=== PATIENT | female | born 1985 | race Caucasian/White ===

== ENCOUNTER 2016-12-30 11:34 | Emergency (ER) | payer BC ==
[~2016-12-30] VITALS: Ht 157.5 cm; Wt 131.7 kg
[~2016-12-30 11:34] MED LIST: DICY20TA PO; FLAG500T PO; PREN27TA3 PO; ZOFR8TAB PO
[2016-12-30 11:35] VITALS: BP 142/89
[2016-12-30] MEDS ORDERED: KEFL500C17 PO (12:25)
== END 2016-12-30 12:45 | disposition home or self-care (01) ==
LOC: M ED 12:26
DX: J02.8 Acute pharyngitis due to other specified organisms (principal); G43.909 Migraine, unspecified, not intractable, without status migrainosus

== ENCOUNTER → 2018-01-27 | Outpatient (REF) ==
[2018-01-27 10:54] LABS: RUBELLA IgG QUALITATIVE IMMUNE (IMMUNE)
== END ==
LOC: M LAB 09:32
DX: Z00.00 Encounter for general adult medical examination without abnormal findings (principal)

== ENCOUNTER → 2018-04-01 | Outpatient (CLI) | payer BC ==
[2018-04-01 07:34] LABS: BASO % 0.5 % (0.0-1.0); EOS # 0.2 10^3/uL (0.0-0.50); EOS % 2.4 % (0.0-3.0); HEMATOCRIT 41.6 % (36.0-47.0); IMMATURE GRANULOCYTE % 0.3 % (0-3.0); LYMPH % 31.9 % (24.0-44.0); MEAN CORPUSCULAR HEMOGLOBIN 27.6 pg (27.0-33.0); MEAN CORPUSCULAR HGB CONC 33.7 g/dl (32.0-36.5); MEAN CORPUSCULAR VOLUME 81.9 fl (80.0-96.0); MONO # 0.4 10^3/uL (0.0-0.8); NEUTROPHILS # 3.7 10^3/uL (1.8-7.7); NEUTROPHILS % 58.9 % (36.0-66.0); PLATELET COUNT, AUTOMATED 232 10^3/uL (150-450); RED BLOOD COUNT 5.08 10^6/uL (4.00-5.40); RED CELL DISTRIBUTION WIDTH 12.3 % (11.5-14.5); WHITE BLOOD COUNT 6.2 10^3/uL (4.0-10.0)
[2018-04-01 08:20] LABS: ALBUMIN 3.8 GM/DL (3.2-5.2); ALBUMIN/GLOBULIN RATIO 1.23 (1.00-1.93); ALKALINE PHOSPHATASE 80 U/L (45-117); ALT/SGPT 36 U/L (12-78); ANION GAP 9 MEQ/L (8-16); AST/SGOT 30 U/L (7-37); BILIRUBIN,TOTAL 0.5 MG/DL (0.2-1.0); BLOOD UREA NITROGEN 8 MG/DL (7-18); CALCIUM LEVEL 9.3 MG/DL (8.5-10.1); CARBON DIOXIDE LEVEL 25 MEQ/L (21-32); CHLORIDE LEVEL 106 MEQ/L (98-107); CREATININE FOR GFR 0.69 MG/DL (0.55-1.30); GLOMERULAR FILTRATION RATE > 60.0 (>60); GLUCOSE, FASTING 93 MG/DL (70-100); POTASSIUM SERUM 4.2 MEQ/L (3.5-5.1); SODIUM LEVEL 140 MEQ/L (136-145); TOTAL PROTEIN 6.9 GM/DL (6.4-8.2)
[2018-04-01 15:35] LABS: ESTIMATED AVERAGE GLUCOSE 111 MG/DL (60-110); HEMOGLOBIN A1c 5.5 %
== END ==
LOC: M LAB 06:26
DX: E66.01 Morbid (severe) obesity due to excess calories (principal); R73.01 Impaired fasting glucose; E78.6 Lipoprotein deficiency
CPT/HCPCS: 84443

== ENCOUNTER → 2018-09-09 | Outpatient (CLI) | payer BC ==
[~2018-09-09] MED LIST changes: +KEFL500C17 PO
[2018-09-09 17:18] LABS: BASO % 0.4 % (0.0-1.0); EOS # 0.2 10^3/uL (0.0-0.50); EOS % 2.5 % (0.0-3.0); HEMOGLOBIN 13.6 g/dl (12.0-15.5); LYMPH # 1.6 10^3/uL (1.5-4.5); MEAN CORPUSCULAR HEMOGLOBIN 27.4 pg (27.0-33.0); MEAN CORPUSCULAR VOLUME 80.6 fl (80.0-96.0); MONO # 0.5 10^3/uL (0.0-0.8); MONO % 7.7 % (0.0-5.0); NEUTROPHILS # 4.5 10^3/uL (1.8-7.7); NEUTROPHILS % 66.1 % (36.0-66.0); PLATELET COUNT, AUTOMATED 219 10^3/uL (150-450); RED BLOOD COUNT 4.96 10^6/uL (4.00-5.40); WHITE BLOOD COUNT 6.8 10^3/uL (4.0-10.0)
[2018-09-09 17:42] LABS: ALBUMIN 3.6 GM/DL (3.2-5.2); ALT/SGPT 26 U/L (12-78); BILIRUBIN,TOTAL 0.3 MG/DL (0.2-1.0); BLOOD UREA NITROGEN 12 MG/DL (7-18); C REACTIVE PROTEIN QUANTITATIV 8.98 MG/DL (0.00-0.30); CALCIUM LEVEL 9.8 MG/DL (8.5-10.1); CARBON DIOXIDE LEVEL 28 MEQ/L (21-32); CHLORIDE LEVEL 105 MEQ/L (98-107); CREATININE FOR GFR 0.66 MG/DL (0.55-1.30); GLOMERULAR FILTRATION RATE > 60.0 (>60); GLUCOSE, FASTING 99 MG/DL (70-100); SODIUM LEVEL 139 MEQ/L (136-145); TOTAL PROTEIN 7.1 GM/DL (6.4-8.2)
== END ==
LOC: M LAB 16:28
PROVIDERS: ATTEND Family Medicine
DX: L03.115 Cellulitis of right lower limb (principal)

== ENCOUNTER 2019-10-24 02:44 | Emergency (ER) | payer BC ==
[~2019-10-24] VITALS: Ht 160 cm; Wt 125.0 kg
[~2019-10-24 02:44] MED LIST changes: +ONDA-227 PO; -ZOFR8TAB PO
[2019-10-24] MEDS ORDERED: LEVA1TAB2 PO (02:49)
[2019-10-24] MEDS ORDERED: LIDOCAINE W/EPINEPHRINE 1% 20ML VIAL SC ONE (04:45)
[2019-10-24 05:13] VITALS: BP 124/78
== END 2019-10-24 05:24 | disposition home or self-care (01) ==
LOC: M ED 02:44
DX: N75.0 Cyst of Bartholin's gland (principal); G43.909 Migraine, unspecified, not intractable, without status migrainosus; G89.29 Other chronic pain; F17.200 Nicotine dependence, unspecified, uncomplicated; Z79.899 Other long term (current) drug therapy

== ENCOUNTER → 2020-11-05 | Outpatient (CLI) | payer BC ==
[~2020-11-05] MED LIST changes: +LEVA1TAB2 PO
--- NOTE | 2020-11-05 13:44 | REP ---
INDICATION: LOW BACK PAIN. COMPARISON: None TECHNIQUE: Seven views including flexion and extension bending views FINDINGS: There is a mild levoconvex lumbar curve. The disc spaces are symmetric and relatively well maintained. There is mild T12-L1 disc space narrowing with anterior lipping. Vertebral body height is within normal limits. Flexion and extension bending views show no evidence of instability. There is no evidence of spondylolysis or spondylolisthesis. The pedicles are intact bilaterally. There is partial lumbarization of S1. There is S1 spina bifida occulta. IMPRESSION: Chronic changes as described above. <Electronically signed by Morales Meng > 11/05/20 [id number]
== END ==
LOC: M WUC 11:38
PROVIDERS: ATTEND Family Medicine
DX: M54.5 Low back pain (principal); Q76.0 Spina bifida occulta

== ENCOUNTER 2020-11-14 12:13 | Emergency (ER) | payer BC ==
[~2020-11-14] VITALS: Ht 160 cm; Wt 126.2 kg
[2020-11-14] MEDS ORDERED: PRED10TA2 (12:22)
[2020-11-14] MEDS ORDERED: HYDR-3490 (12:22)
[2020-11-14] MEDS ORDERED: ONDA8TAB8 (12:22)
--- NOTE | 2020-11-14 14:02 | REP ---
INDICATION: CHEST PAIN COMPARISON: None. TECHNIQUE: PA/Lateral FINDINGS: Lungs: Clear, no infiltrate. Heart: Normal in size. Mediastinum: Mediastinal silhouette unremarkable. Pleural angles: Unremarkable.. Bones and soft tissues: Unremarkable. IMPRESSION: No acute pulmonary disease. <Electronically signed by Andrei Boateng > 11/14/20 [id number]
[2020-11-14 14:27] LABS: BASO # 0.1 10^3/uL (0.0-0.2); BASO % 0.5 % (0.0-1.0); EOS # 0.1 10^3/uL (0.0-0.5); EOS % 0.4 % (0.0-3.0); HEMATOCRIT 44.3 % (36.0-47.0); HEMOGLOBIN 15.2 g/dl (12.0-15.5); LYMPH # 1.7 10^3/uL (1.5-5.0); MEAN CORPUSCULAR HEMOGLOBIN 27.3 pg (27.0-33.0); MEAN CORPUSCULAR HGB CONC 34.3 g/dl (32.0-36.5); MEAN CORPUSCULAR VOLUME 79.5 fl (80.0-96.0); MONO # 0.5 10^3/uL (0.0-0.8); MONO % 4.7 % (2.0-8.0); NEUTROPHILS # 9.1 10^3/uL (1.5-8.5); NEUTROPHILS % 78.7 % (36.0-66.0); PLATELET COUNT, AUTOMATED 258 10^3/uL (150-450); RED BLOOD COUNT 5.57 10^6/uL (4.00-5.40); WHITE BLOOD COUNT 11.5 10^3/uL (4.0-10.0)
[2020-11-14 15:01] LABS: ALT/SGPT 44 U/L (12-78); BLOOD UREA NITROGEN 14 MG/DL (7-18); CALCIUM LEVEL 9.9 MG/DL (8.5-10.1); CARBON DIOXIDE LEVEL 29 MEQ/L (21-32); CHLORIDE LEVEL 101 MEQ/L (98-107); CREATININE FOR GFR 0.69 MG/DL (0.55-1.30); GLOMERULAR FILTRATION RATE > 60.0 (>60); GLUCOSE, FASTING 106 MG/DL (70-100); POTASSIUM SERUM 3.8 MEQ/L (3.5-5.1); SODIUM LEVEL 136 MEQ/L (136-145)
[2020-11-14 15:02] LABS: BILIRUBIN,DIRECT 0.1 MG/DL (0.0-0.2); BILIRUBIN,TOTAL 0.4 MG/DL (0.2-1.0); CK-MB VALUE MASS 1.4 NG/ML (<3.6); CPK CREATINE PHOSPHOKINASE 133 U/L (26-192); FREE T4 1.36 NG/DL (0.76-1.46); LIPASE 335 U/L (73-393); MB/CK RELATIVE INDEX 1.05 (< OR =4); THYROID STIMULATING HORMONE 0.746 uIU/ML (0.358-3.740); TOTAL PROTEIN 7.1 GM/DL (6.4-8.2); TROPONIN I < 0.02 NG/ML (< 0.10)
[2020-11-14] MEDS ORDERED: ISOVUE-370 76% 100ML VIAL As Ordered ONE (15:39)
--- NOTE | 2020-11-14 16:40 | REP ---
INDICATION: chest pain, abdominal pain. COMPARISON: None. TECHNIQUE: CT angiogram chest performed following the intravenous administration of 100 cc of Isovue 370. Sagittal and coronal reconstruction images are performed. Study is submitted for interpretation 4:30 p.m.. FINDINGS: Lungs: Clear, no infiltrate or nodule. Mediastinum: No adenopathy. Pulmonary arteries: No evidence of pulmonary embolism. Maite: No adenopathy. Axilla: No adenopathy. Pleura: No effusion. Heart: Not enlarged. Thoracic aorta: No aneurysm or dissection. Visualized osseous structures: There are degenerative changes of the spine without compression deformity. IMPRESSION: No CT evidence of pulmonary embolism or aortic dissection. No infiltrate seen. <Electronically signed by Andrei Boateng > 11/14/20 [id number]
--- NOTE | 2020-11-14 16:47 | REP ---
INDICATION: chest pain, abdominal pain COMPARISON: None. TECHNIQUE: CT Scan of the abdomen and pelvis was performed with intravenous administration of 100 cc of Isovue 370, without oral contrast. Sagittal and coronal reconstruction images are performed. FINDINGS: Lung bases: Unremarkable. Liver: There is diffuse fatty infiltration of the liver Gallbladder: Unremarkable. Spleen: Normal. Adrenals: Normal. Pancreas: Normal. Kidneys: Normal. Small and large bowel: There is diverticulosis of the lower left and sigmoid colon.. Free fluid: None. Abdominal aorta: No aneurysm or dissection. Adenopathy: None. Appendix: Not inflamed. Osseous structures: Unremarkable. Pelvis: There is an anterior uterine fibroid 1.5 cm in diameter. IMPRESSION: No acute abnormalities. <Electronically signed by Andrei Boateng > 11/14/20 [id number]
[2020-11-14 17:45] VITALS: BP 115/70
--- NOTE | 2020-11-14 20:29 | ECGEPIP ---
[facility] - ED Test Date: 2020-11-14 Pat Name: DEANDRA FERNÁNDEZ Department: Room: - Gender: Female [employer]: : 1985 Requested By: RAFI Saldivar Order Number: [id number] Reading MD: Haley Ortega Measurements Intervals Soper Rate: 91 P: 32 CT: 164 QRS: 67 QRSD: 84 T: 11 QT: 364 QTc: 447 Interpretive Statements Normal sinus rhythm NSTTW abnormalities No prior Electronically Signed on 11-14-2020 20:29:01 EDT by Haley Ortega
== END 2020-11-14 17:51 | disposition home or self-care (01) ==
LOC: M ED 12:13
DX: R07.9 Chest pain, unspecified (principal); R10.9 Unspecified abdominal pain; I10 Essential (primary) hypertension; G43.909 Migraine, unspecified, not intractable, without status migrainosus; F17.200 Nicotine dependence, unspecified, uncomplicated
CPT/HCPCS: 71046; 71275; 74177; 80048; 80076; 82550; 82553; 83690; 84439; 84443; 84484; 85025; 93005; 93041; 94760; 99285; Q9967

== ENCOUNTER → 2021-05-15 | Outpatient (CLI) | payer BC ==
[~2021-05-15] MED LIST changes: +HYDR-3490; +ONDA8TAB8; +PRED10TA2
--- NOTE | 2021-05-15 13:50 | REP ---
INDICATION: PREG DATEING VIABILITY. COMPARISON: None. TECHNIQUE: Transvesical imaging FINDINGS: Within the uterus there is an anechoic structure with increased echoes surrounding it consistent with a decidual reaction. Within the gestational sac there is echogenic material consistent with a pole the mean crown-rump length measurement of which is consistent with a 9 week 3 day gestational age. Based on that the estimated date of delivery is 12/15/2021. Doppler interrogation of the pole shows a heart rate of 179 beats per minute. A yolk sac was seen within the gestational sac. There is no evidence of a chorionic or subchorionic abnormality. Seen in the left lateral uterine parenchyma a 4 x 3 x 3.8 cm sized mixed echo nodule was identified. IMPRESSION: 1. Early OB ultrasound as described above. 2. Likely uterine fibroid as described above. Follow-up is recommended. This was not present on the prior ultrasound examination of 05/09/2015 but may have developed. <Electronically signed by Morales Meng > 05/15/21 0314
== END ==
LOC: M RAD 13:07
PROVIDERS: ATTEND Family Medicine
DX: Z36.87 Encounter for antenatal screening for uncertain dates (principal); Z3A.09 9 weeks gestation of pregnancy

== ENCOUNTER → 2021-06-10 | Outpatient (CLI) | payer BC ==
[2021-06-10 17:36] LABS: HEMATOCRIT 36.9 % (36.0-47.0); HEMOGLOBIN 12.5 g/dl (12.0-15.5); MEAN CORPUSCULAR HEMOGLOBIN 26.9 pg (27.0-33.0); MEAN CORPUSCULAR HGB CONC 33.9 g/dl (32.0-36.5); MEAN CORPUSCULAR VOLUME 79.5 fl (80.0-96.0); PLATELET COUNT, AUTOMATED 212 10^3/uL (150-450); RED BLOOD COUNT 4.64 10^6/uL (4.00-5.40); WHITE BLOOD COUNT 8.7 10^3/uL (4.0-10.0)
[2021-06-10 19:38] LABS: HEPATITIS C VIRUS ABY INDEX 0.1 INDEX (<0.8); HIV 1&2 SCREEN CENTAUR NEGATIVE (NEGATIVE)
[2021-06-10 20:28] LABS: GC DNA AMPLIFICATION NEGATIVE (NEGATIVE)
== END ==
LOC: M PLALAB 14:29
PROVIDERS: ATTEND Specialist
DX: Z34.01 Encounter for supervision of normal first pregnancy, first trimester (principal); Z36.89 Encounter for other specified antenatal screening

== ENCOUNTER → 2021-07-22 | Outpatient (CLI) | payer BC | LOC: M WHC 07:51 | PROVIDERS: ATTEND Specialist | DX: Z36.89 Encounter for other specified antenatal screening (principal); Z3A.19 19 weeks gestation of pregnancy ==

== ENCOUNTER → 2021-08-26 | Outpatient (CLI) | payer BC | LOC: M WHC 08:20 | PROVIDERS: ATTEND Specialist | DX: Z34.02 Encounter for supervision of normal first pregnancy, second trimester (principal); Z36.2 Encounter for other antenatal screening follow-up; Z3A.24 24 weeks gestation of pregnancy ==

== ENCOUNTER → 2021-09-16 | Outpatient (CLI) | payer BC ==
[2021-09-16 16:13] LABS: HEMOGLOBIN 11.9 g/dl (12.0-15.5); MEAN CORPUSCULAR HEMOGLOBIN 27.7 pg (27.0-33.0); MEAN CORPUSCULAR VOLUME 81.4 fl (80.0-96.0); PLATELET COUNT, AUTOMATED 206 10^3/uL (150-450); WHITE BLOOD COUNT 9.1 10^3/uL (4.0-10.0)
[2021-09-16 17:12] LABS: GC DNA AMPLIFICATION NEGATIVE (NEGATIVE)
== END ==
LOC: M PLALAB 12:25
PROVIDERS: ATTEND Specialist
DX: Z36.89 Encounter for other specified antenatal screening (principal); Z3A.26 26 weeks gestation of pregnancy

== ENCOUNTER → 2021-09-23 | Outpatient (CLI) | payer BC | LOC: M PLALAB 11:05 | PROVIDERS: ATTEND Specialist | DX: Z34.82 Encounter for supervision of other normal pregnancy, second trimester (principal); Z3A.26 26 weeks gestation of pregnancy | CPT/HCPCS: 36415; 86850; 86901; J2790 ==

== ENCOUNTER → 2021-11-11 | Outpatient (CLI) | payer BC | LOC: M WHC 10:16 | PROVIDERS: ATTEND Obstetrics & Gynecology | DX: O26.843 Uterine size-date discrepancy, third trimester (principal); Z3A.35 35 weeks gestation of pregnancy ==

== ENCOUNTER → 2021-11-14 | Outpatient (REF) | payer BC | LOC: M PLALAB 08:23 | PROVIDERS: ATTEND Specialist | DX: Z34.03 Encounter for supervision of normal first pregnancy, third trimester (principal) ==

== ENCOUNTER 2021-12-19 11:00 | Observation (INO) | payer BC ==
[~2021-12-19] VITALS: Ht 160 cm; Wt 131.0 kg
[2021-12-19] VITALS (9 sets, daily range): BP systolic 120–197; BP diastolic 62–116
[~2021-12-19 11:00] MED LIST changes: +IBUP80TA PO; +OXYC1TAB23 PO; +PRENTAB9 PO; +TUMS500C PO
[2021-12-19] MEDS ORDERED: ACET500P3 PO (11:26)
[2021-12-19] MEDS ORDERED: ACET-897 PO (11:26)
[2021-12-19] MEDS ORDERED: ACETAMINOPHEN 500 MG TAB PO PRN (11:50)
[2021-12-19] MEDS ORDERED: LABETALOL 100MG/20ML VIAL IV ONE (11:50)
[2021-12-19] MEDS ORDERED: TRANEXAMIC ACID INJection 1,000 MG in NS 100 ML IV PRN (11:50)
[2021-12-19] MEDS: LR 1,000 ML IV SCH ×2 (12:43→20:52)
[2021-12-19 14:18] LABS: ALT/SGPT 41 U/L (12-78); BILIRUBIN,TOTAL 0.4 MG/DL (0.2-1.0); CREATININE FOR GFR 0.69 MG/DL (0.55-1.30); GLOMERULAR FILTRATION RATE > 60.0 (>60); LDH LACTATE DEHYDROGENASE 223 U/L (84-246); URIC ACID 6.8 MG/DL (2.6-6.0)
[2021-12-19 14:33] LABS: CREATININE,RANDOM URINE 61.8 MG/DL; TOTAL PROTEIN,RANDOM URINE 162.4 MG/DL (0.0-12.0)
[2021-12-20 02:00] VITALS: BP 120/78
[2021-12-20] MEDS: LR 1,000 ML IV SCH (04:35)
[2021-12-20 06:00] VITALS: BP 141/76
[2021-12-20 06:47] LABS: HEMATOCRIT 27.9 % (36.0-47.0); HEMOGLOBIN 9.2 g/dl (12.0-15.5); MEAN CORPUSCULAR HEMOGLOBIN 26.6 pg (27.0-33.0); MEAN CORPUSCULAR VOLUME 80.6 fl (80.0-96.0); PLATELET COUNT, AUTOMATED 237 10^3/uL (150-450); RED BLOOD COUNT 3.46 10^6/uL (4.00-5.40); WHITE BLOOD COUNT 6.6 10^3/uL (4.0-10.0)
[2021-12-20] MEDS ORDERED: PRENATAL VITAMINS CHEWABLE TABLET PO SCH (09:00)
[2021-12-20 10:00] VITALS: BP 120/70
[2021-12-20] MEDS ORDERED: FERR324T21 PO (11:26)
[2021-12-20] MEDS ORDERED: DOCU-153 PO (11:28)
== END 2021-12-20 14:45 | disposition home or self-care (01) ==
LOC: M LDO 11:00 → M OBS 11:01
PROVIDERS: ADMIT Obstetrics & Gynecology; ATTEND Obstetrics & Gynecology
DX: O72.2 Delayed and secondary postpartum hemorrhage (principal); Z79.899 Other long term (current) drug therapy

== ENCOUNTER → 2023-01-06 | Outpatient (REF) | payer BC ==
[~2023-01-06] MED LIST changes: +ACET-897 PO; +ACET500P3 PO; +DOCU-153 PO; +FERR324T21 PO
== END ==
LOC: M SFHCWAGY 13:46
PROVIDERS: ATTEND Specialist
DX: Z01.419 Encounter for gynecological examination (general) (routine) without abnormal findings (principal)

== ENCOUNTER → 2023-01-22 | Outpatient (REF) | payer BC | LOC: M LAB REF 16:51 | PROVIDERS: ATTEND Family Medicine | DX: R10.2 Pelvic and perineal pain (principal) ==

== ENCOUNTER → 2025-02-28 | Outpatient (CLI) | payer BC ==
[~2025-02-28] MED LIST changes: -DOCU-153 PO; +ONDA-284; -ONDA8TAB8; +STOO100C30 PO
== END ==
LOC: M WHC 11:04
PROVIDERS: ATTEND Specialist
DX: Z12.31 Encounter for screening mammogram for malignant neoplasm of breast (principal); R92.323 Mammographic fibroglandular density, bilateral breasts; R92.8 Other abnormal and inconclusive findings on diagnostic imaging of breast

== ENCOUNTER → 2025-03-08 | Outpatient (CLI) | payer BC | LOC: M WHC 09:31 | PROVIDERS: ATTEND Specialist | DX: R92.8 Other abnormal and inconclusive findings on diagnostic imaging of breast (principal) ==

== ENCOUNTER → 2025-05-29 | Outpatient (REF) | payer BC ==
[2025-06-01 16:03] LABS: HPV APTIMA Not Detected (Not Detected)
== END ==
LOC: M SFHCWAGY 13:05
PROVIDERS: ATTEND Specialist
DX: Z01.419 Encounter for gynecological examination (general) (routine) without abnormal findings (principal)